=== PATIENT | male | born 1995 | race Caucasian/White ===

== ENCOUNTER 2017-04-23 16:53 | Emergency (ER) | payer OTHER ==
[~2017-04-23] VITALS: Ht 182.9 cm; Wt 62.1 kg
[2017-04-23] MEDS ORDERED: IBUP-1114 PO (17:09)
[2017-04-23] MEDS ORDERED: NS 1,000 ML IV ONE (17:30)
[2017-04-23] MEDS ORDERED: ONDANSETRON 4MG/2ML VIAL (J2405) IV ONE (17:30)
[2017-04-23] MEDS ORDERED: KETOROLAC 30 MG/ML VIAL (J1885) IV ONE (17:30)
[2017-04-23 18:21] LABS: ALBUMIN 4.4 GM/DL (3.2-5.2); ALBUMIN/GLOBULIN RATIO 1.16 (1.00-1.93); ALKALINE PHOSPHATASE 119 U/L (45-117); ALT/SGPT 32 U/L (12-78); AMYLASE 95 U/L (25-115); ANION GAP 6 MEQ/L (8-16); AST/SGOT 27 U/L (15-37); BILIRUBIN,DIRECT 0.2 MG/DL (0.0-0.2); BILIRUBIN,TOTAL 0.6 MG/DL (0.2-1.0); BLOOD UREA NITROGEN 15 MG/DL (7-18); CARBON DIOXIDE LEVEL 30 MEQ/L (21-32); CHLORIDE LEVEL 102 MEQ/L (98-107); CREATININE FOR GFR 1.12 MG/DL (0.70-1.30); GLOMERULAR FILTRATION RATE > 60.0 (>60); GLUCOSE, FASTING 82 MG/DL (70-105); POTASSIUM SERUM 4.1 MEQ/L (3.5-5.1); SODIUM LEVEL 138 MEQ/L (136-145); TOTAL PROTEIN 8.2 GM/DL (6.4-8.2)
[2017-04-23 18:28] LABS: BASO # 0.1 K/mm3 (0.0-0.2); EOS # 0.6 K/mm3 (0.0-0.50); EOS % 7.5 % (0.0-3.0); LARGE UNSTAINED CELL # 0.1 K/mm3 (0.0-0.4); LARGE UNSTAINED CELL % 1.6 % (0.0-4.0); LYMPH # 2.6 K/mm3 (1.5-6.5); LYMPH % 28.2 % (24.0-44.0); MEAN CORPUSCULAR HEMOGLOBIN 31.5 pg (27.0-33.0); MEAN CORPUSCULAR HGB CONC 34.9 g/dl (32.0-36.5); MEAN CORPUSCULAR VOLUME 90.1 fl (80.0-96.0); MONO # 0.4 K/mm3 (0.0-0.8); MONO % 5.1 % (0.0-5.0); NEUTROPHILS # 4.9 K/mm3 (1.8-7.7); NEUTROPHILS % 56.6 % (36.0-66.0); PLATELET COUNT, AUTOMATED 284 k/mm3 (150-450); RED CELL DISTRIBUTION WIDTH 12.6 % (11.5-14.5); WHITE BLOOD COUNT 8.6 K/mm3 (4.0-10.0)
[2017-04-23] MEDS ORDERED: BENT20TA PO (18:53)
[2017-04-23] MEDS ORDERED: ZOFR4TAB3 PO (18:53)
[2017-04-23 18:55] VITALS: BP 106/65
== END 2017-04-23 19:03 | disposition home or self-care (01) ==
LOC: M ED 17:26
DX: R11.2 Nausea with vomiting, unspecified (principal); R10.32 Left lower quadrant pain; F17.200 Nicotine dependence, unspecified, uncomplicated
CPT/HCPCS: 80048; 80076; 82150; 83690; 85025; 96374; 96375; 99283; J1885; J2405

== ENCOUNTER 2017-09-20 00:31 | Emergency (ER) | payer OTHER ==
[~2017-09-20] VITALS: Ht 180.3 cm; Wt 62.7 kg
[~2017-09-20 00:31] MED LIST: BENT20TA PO; IBUP-1114 PO; ZOFR4TAB3 PO
[2017-09-20 01:56] LABS: BASO # 0.1 10^3/uL (0.0-0.2); BASO % 0.7 % (0.0-1.0); EOS # 0.6 10^3/uL (0.0-0.50); EOS % 6.7 % (0.0-3.0); IMMATURE GRANULOCYTE % 0.1 % (0-0); LYMPH # 2.9 10^3/uL (1.5-6.5); LYMPH % 35.1 % (24.0-44.0); MEAN CORPUSCULAR HEMOGLOBIN 30.4 pg (27.0-33.0); MEAN CORPUSCULAR HGB CONC 33.5 g/dl (32.0-36.5); MEAN CORPUSCULAR VOLUME 90.9 fl (80.0-96.0); MONO # 0.7 10^3/uL (0.0-0.8); MONO % 8.7 % (0.0-5.0); NEUTROPHILS % 48.7 % (36.0-66.0); PLATELET COUNT, AUTOMATED 222 10^3/uL (150-450); RED CELL DISTRIBUTION WIDTH 12.6 % (11.5-14.5); WHITE BLOOD COUNT 8.3 10^3/uL (4.0-10.0)
--- NOTE | 2017-09-20 02:10 | REPUSA ---
CLINICAL HISTORY: Syncope. TECHNIQUE: Multiple axial brain CT scan sections were obtained from base to vertex without contrast a dministration. COMMENTS: The study shows normal configuration of sella turcica. There are no intra or extra-axial collections. There is no mass effect or midline shift. There is no evidence of hematoma formation. No hydrocephal us is present. No abnormal calcifications are noted. No significant abnormalities are seen either in the posterior fossa or supratentorial compartment. The sinuses and mastoid air cells are patent. IMPRESSION: No evidence of acute intracranial pathology. Thank you for your kind referral of this patient.
[2017-09-20 02:19] LABS: METHADONE URINE NEGATIVE (NEGATIVE)
[2017-09-20 02:21] LABS: ANION GAP 4 MEQ/L (8-16); BLOOD UREA NITROGEN 20 MG/DL (7-18); CALCIUM LEVEL 8.6 MG/DL (8.5-10.1); CARBON DIOXIDE LEVEL 32 MEQ/L (21-32); CHLORIDE LEVEL 104 MEQ/L (98-107); CREATININE FOR GFR 0.96 MG/DL (0.70-1.30); FREE T4 1.07 NG/DL (0.76-1.46); GLOMERULAR FILTRATION RATE > 60.0 (>60); GLUCOSE, FASTING 93 MG/DL (70-105); POTASSIUM SERUM 4.1 MEQ/L (3.5-5.1); SODIUM LEVEL 140 MEQ/L (136-145)
[2017-09-20 04:43] VITALS: BP 106/58
--- NOTE | 2017-09-21 14:07 | ECGEPIP ---
Stationary ECG Study [facility] - ED Test Date: 2017-09-20 Pat Name: MOSHE DIEHL Department: Room: - Gender: M Welding Technician: : [id number] Requested By: JOHN Chen Order Number: [id number] Reading MD: Lupe Maier Measurements Intervals [place] Rate: 65 P: 74 CT: 147 QRS: 93 QRSD: 97 T: 66 QT: 394 QTc: 410 Interpretive Statements SINUS RHYTHM WITH SINUS ARRHYTHMIA BORDERLINE RIGHT AXIS DEVIATION PROBABLE EARLY REPOLARIZATION NO PRIOR FOR COMPARISON Electronically Signed On 09-21-2017 14:07:44 EST by Lupe Maier
== END 2017-09-20 04:44 | disposition home or self-care (01) ==
LOC: EDBD 00:31 → M ED 00:31
DX: R55 Syncope and collapse (principal); Z72.0 Tobacco use
CPT/HCPCS: 70450; 80048; 80307; 82550; 82553; 84439; 84443; 85025; 85379; 93005; 93041; 94760; 99285; G0480

== ENCOUNTER 2017-12-04 11:24 | Emergency (ER) | payer OTHER ==
[2017-12-04 15:15] LABS: INFLUENZA A AMPLIFICATION NEGATIVE (NEGATIVE); INFLUENZA B AMPLIFICATION NEGATIVE (NEGATIVE)
[2017-12-04] MEDS: ALBUTEROL SULFATE 2.5 MG/0.5 ML INH NEB SOLN INH (15:57)
[2017-12-04] MEDS: IPRATROPIUM 0.5MG/ALBUTEROL 2.5MG INH SOL UD 3ML (DUONEB)(J7620) NEB (15:58)
[2017-12-04] MEDS: DOXYCYCLINE HYCLATE 100 MG TAB PO (16:42)
[2017-12-04] MEDS: predniSONE 20 MG TAB PO (16:42)
== END 2017-12-04 16:45 | disposition home or self-care (01) ==
LOC: M ED 11:24
DX: J21.9 Acute bronchiolitis, unspecified (principal); F17.210 Nicotine dependence, cigarettes, uncomplicated
CPT/HCPCS: 71046